=== PATIENT | male | born 2000 | race Two or more races ===

== ENCOUNTER 2024-10-22 09:34 | Emergency (ER) | payer MEDICAID, SELFPAY ==
[2024-10-22 09:45] VITALS: BP 180/105; PULSE 81; RESP 18; TEMP 36.6; O2SAT 97; BMI 34.2
--- NOTE | 2024-10-22 09:50 | EDNOTE_ITS ---
<Statement entered by Jody Torres MD - 10/22/24 16:59> As co-signing physician, I was present and available for consult prn. I concur with the plan and care as documented by the midlevel provider. ED Allergic Reaction RME/HPI General Chief complaint: Allergic Reaction Stated complaint: ALLERGIC REACTION Time Seen by Provider: 10/22/24 09:53 Source: patient Arrival date/time: 10/22/24 09:34 24-year-old male with no known medical history presents to the emergency room with a chief complaint of tingling in his throat. Patient states he is allergic to sulfur which states. Today at work. Patient states he was able to get out of work quickly and states his contact was very minimal. Mode of arrival: ambulatory Limitations: no limitations Related Data Home Medications ?Medication ?Instructions ?Recorded ?Confirmed azithromycin 250 mg tablet 250 mg PO QDAY 11/10/20 (Zithromax Z-Jasper) ondansetron 4 mg disintegrating 4 mg PO Q6H 11/10/20 0 11/10/20 tablet Previous Rx's ?Medication ?Instructions ?Recorded albuterol sulfate 90 mcg/actuation 2 puff inhalation Q 6HR PRN COUGH 05/21/16 aerosol inhaler (ProAir HFA) #1 inh azithromycin 500 mg tablet See Rx Instructions PO .COM PLEX #3 11/13/20 tabs ibuprofen 600 mg tablet 600 mg PO QID PRN fever or p ain 11/13/20 #30 tabs Allergies Allergy/AdvReac Type Severity Reaction Status Date / Time amoxicillin Allergy Unknown Verified 10/22/24 09:36 sulfur dioxide Allergy Verified 10/22/24 09:36 Review of Systems Review of Systems Systems Reviewed: All systems reviewed, normal except as documented Constitutional Constitutional: Reports system reviewed and no additional complaints, except as documented, Denies fatigue, Denies fever(s), Denies headache(s) and Denies weakness Eyes Eyes: Reports system reviewed and no additional complaints, except as documented, Denies blurry vision and Denies change in vision ENT Ears, Nose, Mouth, and Throat: Reports system reviewed and no additional complaints, except as documented, Denies otalgia, Denies headache(s), Denies nasal congestion, Denies throat swelling and Denies vertigo Cardiovascular Cardiovascular: Reports system reviewed and no additional complaints, except as documented, Denies chest pain, Denies dyspnea and Denies dyspnea on exertion Respiratory Respiratory: Reports system reviewed and no additional complaints, except as documented, Denies chest congestion, Denies cough, Denies dyspnea, Denies dyspnea on exertion and Denies wheezing Gastrointestinal Gastrointestinal: Reports system reviewed and no additional complaints, except as documented, Denies abdominal pain, Denies cramping, Denies nausea and Denies vomiting Genitourinary Genitourinary: Reports system reviewed and no additional complaints, except as documented, Denies dysuria and Denies hematuria Musculoskeletal Musculoskeletal: Reports system reviewed and no additional complaints, except as documented and Denies back pain Integumentary/Breasts Skin/Breast: Reports system reviewed and no additional complaints, except as documented and Denies wounds Neurologic Neurologic: Reports system reviewed and no additional complaints, except as documented, Denies confusion, Denies headache(s), Denies lack of coordination, Denies vertigo and Denies weakness Psychiatric Psychiatric: Reports system reviewed and no additional complaints, except as documented, Denies anxiety, Denies confusion, Denies depression, Denies paranoia, Denies suicidal ideation and Denies tactile hallucinations Endocrine Endocrine: Reports system reviewed and no additional complaints, except as documented and Denies fatigue Hematologic/Lymphatic Hematologic/Lymphatic: Reports system reviewed and no additional complaints, except as documented and Denies lymphadenopathy Allergic/Immunologic Allergic/Immunologic: Reports system reviewed and no additional complaints, except as documented, Denies throat swelling, Denies urticaria and Denies wheezing Past Medical History Past Medical History CARDIAC: Negative Congestive Heart Failure RESPIRATORY: Negative Chronic Obstructive Pulmonary Disease (COPD) GENITOURINARY: Negative Renal Disease ENDOCRINE: Negative Diabetes Mellitus Type 1 or Diabetes Mellitus Type 2 Social History SMOKING STATUS: Never smoker ED Exam General Limitations: Present no limitations General appearance: Present alert and in no apparent distress Head Head exam: Present atraumatic Eye Eye exam: Present normal appearance, PERRL and EOMI ENT ENT exam: Present normal exam, normal oropharynx and mucous membranes moist Neck Neck exam: Present normal inspection, full ROM and trachea midline Chest Chest inspection: Present normal inspection and symmetric chest wall rise Respiratory Respiratory exam: Present normal lung sounds bilaterally; Absent respiratory distress, wheezes, stridor, accessory muscle use or prolonged expiratory phase Cardiovascular Cardiovascular exam: Present regular rate, normal rhythm, normal heart sounds, +S1 and +S2; Absent bradycardia, tachycardia or irregular rhythm Abdominal Exam Abdominal exam: Present soft and normal bowel sounds; Absent tenderness Extremities Exam Extremities exam: Present normal inspection and full ROM Back Exam Back exam: Present normal inspection and full ROM Neurological Exam Neurological exam: Present alert, oriented X3 and CN II-XII intact Psychiatric Psychiatric exam: Present normal affect and normal mood Skin Skin exam: Present warm, dry, intact and normal color Course Quality Measures none Orders Category Date Time Status Dexamethasone Inj [Decadron Inj] Med 10/22/24 09:49 Discontinued 10 mg PO X1 ONE DiphenhydrAMINE [Benadryl] Med 10/22/24 09:49 Discontinued 25 mg PO X1 ONE Famotidine [Pepcid] Med 10/22/24 09:49 Discontinued 20 mg PO X1 ONE Vital Signs Vital signs: Vital Signs Temperature 97.8 F 10/22/24 09:45 Pulse Rate 81 10/22/24 09:45 Respiratory Rate 18 10/22/24 09:45 Blood Pressure 180/105 H 10/22/24 09:45 Pulse Oximetry (%) 97 10/22/24 09:45 Oxygen Delivery Method Room Air 10/22/24 09:45 O2 saturation 97% within normal limit Allergic Reaction MDM Narrative MDM Narrative:: 24-year-old male with no known medical history presents to the emergency room with a chief complaint of tingling in his throat. Patient states he is allergic to sulfur which states. Today at work. Patient states he was able to get out of work quickly and states his contact was very minimal. Patient is hemodynamically stable. There is no tachycardia no tachypnea and O2 saturation is 97% on room air Physical examination shows clear bilateral lung sounds there is no wheezing there is no stridor. There is no throat swelling lip swelling or any hives. There is no facial swelling and the patient has not in any respiratory distress and nontoxic-appearing. 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 Antihistamines were given and the patient was kept here for an hour and reevaluated with no significant changes. The patient is stable to discharge Patient was discharged and educated to follow-up with primary care provider in the next 24 to 48 hours and return to the emergency room for any evidence of worsening signs or symptoms Patient data External records reviewed:: [facility] previous records Clinical information provided by:: patient Social determinants that could affect healthcare access:: none Patient has the following chronic illnesses:: No chronic illness How is presenting disease/condition affected by chronic disease/condition?: no chronic disease Evaluation data The following diagnostics were reviewed and interpreted by me:: lab results and radiology exam(s) Lab and/or radiology exams considered but not ordered:: Labs and radiology exams considered and ordered Interpretation Summary: N/A Medications / Prescriptions Medications or Prescriptions considered but not ordered:: Medication given Medication administrations:: Medication Administration History Discontinued Medications Dexamethasone Sodium Phosphate (Dexamethasone Sod Phos Inj 10 Mg/Ml Vial) 10 mg PO X1 ONE Stop: 10/22/24 09:50 Last Admin: 10/22/24 10:06 Dose: 10 mg Documented By: VG Diphenhydramine HCl (Diphenhydramine Elix 25 Mg/10 Ml Udc) 25 mg PO X1 ONE Stop: 10/22/24 09:50 Last Admin: 10/22/24 10:05 Dose: 25 mg Documented By: VG Famotidine (Famotidine 20 Mg Tablet) 20 mg PO X1 ONE Stop: 10/22/24 09:50 Last Admin: 10/22/24 10:05 Dose: 20 mg Documented By: VG Medication given Consultations Consultation(s) initiated? (list below): No Diagnosis Differential Diagnosis allergic reaction: anaphylaxis, allergic reaction, angioedema, contact dermatitis and urticaria Most likely diagnosis given after review of the tests above:: Allergic reaction Admission Indicated Admission indicated?: not indicated Admission Request Was there a request for admission?: No Disposition Plan Disposition Plan: Discharge Discharge Attestation Discharge Attestation: The patient and all family members were given an opportunity to ask questions and understood the discharge instructions. Discharge instructions specifically effects, indications for sooner follow up or return to the emergency department, and the expected course of current diagnosis. Patient condition: Stable Discharge Plan Plan Patient Disposition: HOME (Self Care) Discharge Disposition comment: Stable Prescriptions/Referrals Prescriptions/Med Rec: No Action albuterol sulfate [ProAir HFA] 8.5 GM HFA aerosol inhaler 2 puff Inhalation Q6HR PRN (Reason: COUGH) Qty: 1 0RF azithromycin [Zithromax Z-Jasper] 250 mg Tablet 250 mg PO QDAY ondansetron [Zofran ODT] 4 mg Tablet,Disintegrating 4 mg PO Q6H azithromycin 500 mg tablet See Rx Instructions PO .COMPLEX Qty: 3 0RF Rx Instructions: take 500 mg once daily for 3 days ibuprofen 600 mg tablet 600 mg PO QID PRN (Reason: fever or pain) Qty: 30 0RF Referrals: No Primary/Family,Physician [Primary Care Provider] - In 1 week Problem List Clinical Impression: Allergic reaction Patient/Caregiver Discharge Instructions Education Materials: ED Medicine Reaction: Allergic Additional Instructions: Please follow-up with your primary care provider in the next 24 to 48 hours For any evidence of worsening signs or symptoms return to the emergency room immediately Print Language: Maori Stand Alone Forms: Steph Award Info., Work/School Release, Patient Portal Info Letter PA/[employer] Supervising Physician PA/GEOVANNY Supervising Physician: Dr. Ly
[2024-10-22] MEDS: DiphenhydrAMINE ELIX 25 MG/10 ML UDC PO (10:05)
[2024-10-22] MEDS: FAMOTIDINE 20 MG TABLET PO (10:05)
[2024-10-22] MEDS: DEXAMETHASONE SOD PHOS INJ 10 MG/ML VIAL PO (10:06)
== END 2024-10-22 12:00 | disposition home or self-care (01) ==
PROVIDERS: Emergency Provider Emergency Medicine
DX: R20.2 Paresthesia of skin (principal); Z88.0 Allergy status to penicillin
CPT/HCPCS: 99282; J1100; A9270